=== PATIENT | male | born 1990 ===

== ENCOUNTER 2018-04-06 14:38 | Emergency (ER) | payer OTHER ==
[2018-04-06 14:58] VITALS: BP 131/90; PULSE 102; RESP 16; TEMP 98; O2SAT 98
--- NOTE | 2018-04-06 16:00 | ED PDOC ---
HPI: General Adult Time Seen by Provider: 04/06/18 15:00 Chief Complaint (Nursing): Abnormal Labs Chief Complaint (Provider): Abnormal Labs History Per: Patient History/Exam Limitations: no limitations Onset/Duration Of Symptoms: Hrs Additional Complaint(s): 28 y/o male with a PMHx of possible HIV presents to the ED for evaluation of abnormal labs. Patient is otherwise healthy. Patient reports while at the clinic he had a positive HIV oral swab test and was told that it could be a false positive and came for further evaluation. Patient denies any symptoms. Patient admits to possible HIV exposure with unprotected sex 5 months ago with another male. Patient states he does not know this person to have HIV. Patient reports he is only getting an HI test because he is now in a relationship with another person. PMD: [facility] Past Medical History Reviewed: Historical Data, Nursing Documentation, Vital Signs Vital Signs: Last Vital Signs Temp 98.0 F 04/06/18 14:50 Pulse 102 H 04/06/18 14:50 Resp 16 04/06/18 14:50 BP 131/90 04/06/18 14:50 Pulse Ox 98 04/06/18 19:13 - Medical History PMH: No Chronic Diseases - Surgical History Surgical History: No Surg Hx - Family History Family History: States: No Known Family Hx - Social History Current smoker - smoking cessation education provided: No Alcohol: Occasional Drugs: Other (Marijuana) - Allergies Allergies/Adverse Reactions: Allergies Allergy/AdvReac Type Severity Reaction Status Date / Time No Known Allergies Allergy Verified 04/06/18 14:57 Review of Systems ROS Statement: Except As Marked, All Systems Reviewed And Found Negative Constitutional: Positive for: Other (Repeat HIV Test) Physical Exam - Reviewed Nursing Documentation Reviewed: Yes Vital Signs Reviewed: Yes - Physical Exam Appears: Positive for: No Acute Distress (but Anxious) Head Exam: Positive for: ATRAUMATIC, NORMOCEPHALIC Skin: Positive for: Warm, Dry Eye Exam: Positive for: EOMI, PERRL, Conjunctival injection ENT: Negative for: Pharyngeal Erythema, Tonsillar Exudate, Tonsillar Swelling Neck: Positive for: Painless ROM, Supple Cardiovascular/Chest: Positive for: Regular Rate, Rhythm, Chest Non Tender. Negative for: Murmur Respiratory: Positive for: Normal Breath Sounds. Negative for: Wheezing Gastrointestinal/Abdominal: Positive for: Soft. Negative for: Tenderness Back: Positive for: Normal Inspection. Negative for: Decreased ROM Extremity: Positive for: Normal ROM. Negative for: Deformity Lymphatic: Negative for: Adenopathy Neurologic/Psych: Positive for: Alert. Negative for: Motor/Sensory Deficits - ECG O2 Sat by Pulse Oximetry: 98 (RA) Pulse Ox Interpretation: Normal Medical Decision Making Medical Decision Making: Time: 1525 Impression: Positive HIV Screen, Repeat Test Plan: -- Rapid HIV Screen Time: 1750 Plan: -- Rapid HIV Screen 1900 Pt advised of HIV test. Advised that with repeat screen being positive, he has HIV and needs to continue management at [facility] (@[facility]). Bodily fluid precautions advised. Stable for discharge with followup. Scribe Attestation: Documented by Mary Diamond, acting as a scribe for Denise Fontanez MD. Provider Scribe Attestation: All medical record entries made by the Scribe were at my direction and personally dictated by me. I have reviewed the chart and agree that the record accurately reflects my personal performance of the history, physical exam, medical decision making, and the department course for this patient. I have also personally directed, reviewed, and agree with the discharge instructions and disposition. Disposition - Clinical Impression Clinical Impression: HIV (human immunodeficiency virus infection) Counseled Patient/Family Regarding: Studies Performed, Diagnosis, Need For Followup - Disposition Referrals: [facility] [Outside] (FOLLOW UP AT [facility] ([facility] OF [facility]) FOR FURTHER MANAGEMENT) Disposition: Routine/Home Disposition Time: 19:07 Condition: STABLE Instructions: HIV/AIDS (DC)
== END 2018-04-06 19:15 | disposition home or self-care (01) ==
LOC: H.ER 14:38
DX: B20 Human immunodeficiency virus [HIV] disease (principal)